=== PATIENT | female | born 1990 | race Caucasian/White ===

== ENCOUNTER 2019-10-07 15:20 | Emergency (ER) | payer MEDICAID, OTHER ==
[~2019-10-07] VITALS: Ht 177.8 cm; Wt 59.0 kg
[2019-10-07] MEDS ORDERED: IBUPROFEN 600MG TABLET PO ONE (16:45)
[2019-10-07] MEDS ORDERED: AZITHROMYCIN 500 MG TABLET PO ONE (16:45)
[2019-10-07] MEDS ORDERED: CEFTRIAXONE SODIUM 250 MG/VIAL IM ONE (16:45)
[2019-10-07 17:01] LABS: CLARITY URINE CLOUDY (CLEAR); COLOR URINE YELLOW (YELLOW); KETONES URINE NEGATIVE (NEGATIVE); LEUKOCYTE ESTERASE URINE NEGATIVE (NEGATIVE); NITRITE URINE NEGATIVE (NEGATIVE); OCCULT BLOOD URINE NEGATIVE (NEGATIVE); PROTEIN URINE NEGATIVE (NEGATIVE); SPECIFIC GRAVITY URINE 1.016 (1.005-1.030)
[2019-10-07 17:27] VITALS: BP 120/66
== END 2019-10-07 17:39 | disposition home or self-care (01) ==
LOC: ER 15:20
DX: Z20.2 Contact with and (suspected) exposure to infections with a predominantly sexual mode of transmission (principal)
CPT/HCPCS: 81003; 81025; 96372; 99283; J0696

== ENCOUNTER 2023-07-04 13:38 | Emergency (ER) | payer MEDICAID ==
[~2023-07-04] VITALS: Ht 177.8 cm; Wt 60.0 kg
[2023-07-04 13:57] VITALS: BP 111/72; PULSE 78; RESP 16; TEMP 98.6; O2SAT 99
[2023-07-04] MEDS ORDERED: TOPUD MT (15:41)
[2023-07-04] MEDS ORDERED: IBUP-2028 MT (15:41)
[2023-07-04] MEDS ORDERED: KETOROLAC 30MG/ML VIAL IM ONE (15:45)
== END 2023-07-04 16:20 | disposition home or self-care (01) ==
LOC: ER 14:14
DX: S43.402A Unspecified sprain of left shoulder joint, initial encounter (principal); W01.0XXA Fall on same level from slipping, tripping and stumbling without subsequent striking against object, initial encounter; Y93.89 Activity, other specified; Y92.89 Other specified places as the place of occurrence of the external cause; Y99.8 Other external cause status
CPT/HCPCS: 73030; 81025; 99283

== ENCOUNTER 2024-01-21 10:44 | Emergency (ER) | payer MEDICAID ==
[~2024-01-21] VITALS: Ht 172.7 cm; Wt 64.0 kg
[~2024-01-21 10:44] MED LIST: IBUP-2028 MT; TOPUD MT
[2024-01-21 10:50] VITALS: BP 114/69; PULSE 67; RESP 16; TEMP 98.9; O2SAT 100
[2024-01-21] MEDS ORDERED: ACETAMINOPHEN 325MG TABLET PO ONE (12:15)
== END 2024-01-21 18:57 | disposition left against medical advice (07) ==
LOC: ER 10:44
DX: R07.81 Pleurodynia (principal); Z53.21 Procedure and treatment not carried out due to patient leaving prior to being seen by health care provider